=== PATIENT | female | born 1945 | race Caucasian/White ===

== ENCOUNTER 2016-09-02 09:15 | Day surgery (SDC) | payer MEDICARE ==
--- NOTE | 2016-09-02 07:39 | History and Physical Report ---
DATE: 09/01/2016. CHIEF COMPLAINT: This is a patient with a history of intractable radiculitis. HISTORY OF PRESENT ILLNESS: She has a spinal opioid infusion system which is currently infusing hydromorphone. At the recent refill, it was noted that the system was at battery depletion. She is here for pump battery replacement. PAST MEDICAL HISTORY: Cardiovascular disease, chronic obstructive pulmonary disease, gastritis, degenerative arthritis. PAST SURGICAL HISTORY: Hand surgery, elbow surgery, reconstructive surgery of the upper extremity, stimulator implant. MEDICATIONS ON ADMISSION: To be provided. ALLERGIES: Erythromycin and adhesive tape. SOCIAL HISTORY: Noncontributory. FAMILY HISTORY: Hypertension, cancer. REVIEW OF SYSTEMS: The patient seems appropriate and in no acute distress. PHYSICAL EXAMINATION: (From the chart.) General: Height is 5 feet, 6 inches. Weight is 200 pounds. Vital Signs: Unavailable. HEENT: Within normal limits. Lungs: Clear. Heart: Regular rate and rhythm. Abdomen: Nontender. Musculoskeletal: Examination of the musculoskeletal system shows diffuse pain and tenderness throughout the cervical spine and upper extremities, more right than left. Low back pain with a bilateral lower extremity extension. Sensory eubanks are intact. Neurologic: Cranial nerves are intact. Ambulation: The patient is assistive device dependent. IMPRESSION: 1. INTRACTABLE LUMBAR RADICULITIS, ICD-10 CODE M54.16 AND M54.17. 2. IMPLANTED SPINAL INFUSION SYSTEM WITH HYDROMORPHONE WITH BATTERY DEPLETION. PLAN: The pump is in the right posterior superior gluteal margin and has battery depletion. She is here for replacement. The procedure will be considered outpatient. An overnight stay will not be necessary. No parameter changes will be made. The potential risks, side effects, and complications have all been reviewed and discussed. ALFA ARIAS D.O. Date & Time JOB NUMBER: [id number] cc: Jewel Dsouza
[~2016-09-02 09:15] MED LIST: ACETAMINOPHEN 1,000 MG/100 ML BTL IV ONE; CEFAZOLIN 2 Gram 2 GM/50 ML BAG IVPB ONE; FAMOTIDINE 20MG TABLET PO ONE; HYDROMORPHONE HCL IV ONE; HYDROMORPHONE HCL/PF 0.002 MG in 0.9 % SODIUM CHLORIDE 10ML VIA 0.998 ML IVP ONE; MECLIZINE 25 MG TABLET PO ONE; METOCLOPRAMIDE 10 MG TABLET PO ONE; SODIUM CHLORIDE 0.9% IV ONE
[2016-09-02] MEDS ORDERED: MIDAZOLAM HCL 2MG/2ML VIAL IV ONE (14:00)
[2016-09-02] MEDS ORDERED: FENTANYL PF 100MCG/2ML VIAL IV ONE (14:00)
[2016-09-02] MEDS ORDERED: PROPOFOL 10 MG/ML VIAL IV ONE (14:00)
[2016-09-02] MEDS ORDERED: CEFAZOLIN 1G VIAL IM ONE (14:00)
[2016-09-02] MEDS ORDERED: LIDOCAINE 2% MDV (20MG/ML) 20ML VIAL IV ONE (14:00)
--- NOTE | 2016-09-02 16:38 | Operative Note - [place] ---
DATE OF SURGERY: 09/02/16 PREOPERATIVE DIAGNOSES: 1. LUMBAR RADICULITIS, ICD-10 CODE = M54.16 AND M54.17. 2. SPINAL OPIOID INFUSION SYSTEM HYDROMORPHONE. OPERATION: 1. INCISION, SUBCUTANEOUS DISSECTION, AND REMOVAL AND REPLACEMENT OF PROGRAMMABLE PUMP AT RIGHT POSTERIOR GLUTEAL MARGIN. 2. INCISION AND REVISION OF POUCH TO ACCOMMODATE NEW PUMP RIGHT POSTERIOR GLUTEAL MARGIN. 3. ASPIRATION 1 ML OF CATHETER CONTENTS CLEARING CATHETER OF OPIOID AND CSF MIXTURE. 4. DIAGNOSTIC MYELOGRAPHY WITH RADIOLOGIC SUPERVISION AND INTERPRETATION. 5. PLACEMENT OF PUMP INTO POUCH SECURING TO POSTERIOR FASCIA USING NONABSORBABLE SUTURE AND PUMP EYELETS. 6. CLOSURE OF INCISION VICRYL FOR FASCIA, RUNNING SUBCUTICULAR VICRYL FOR SKIN. DERMABOND CLOSURE. 7. PROGRAMMING OF PUMP TO DELIVER BY SIMPLE CONTINUOUS 1.2 MG HYDROMORPHONE PER DAY. SURGEON: ALFA ARIAS D.O. ANESTHESIA: LOCAL SEDATION. ANESTHESIA PROVIDER: RAJESH CORDERO CRNA INDICATION: This patient presents with a history of intractable lumbar radiculitis with a spinal opioid infusion system Hydromorphone managing pain. At the last refill and reprogramming, it was noted battery depletion. She is here for replacement of battery and appropriate diagnostics. PROCEDURE: Intravenous line, vital sign monitoring, IV sedation, prepped and draped sterile technique. Under imaging, the patient was positioned prone. Sterile prep and sterile technique at the right posterior gluteal margin. The incision was marked, infiltrated with local, then incision made, and subcutaneous dissection was conducted to the Dacron sleeve and closing the pump. The Dacron sleeve was then opened and the pump exteriorized. The pump catheter connection was then and a new pump placed onto the field prefilled with Hydromorphone at10 mg per mL concentration. The new pump 20 mL to previous removed pump 40 mL. The 20 mL pump was then interfaced within the indwelling catheter. The pouch was then revised to accommodate the new pump. Antibiotic irrigation. Bovie for hemostasis. The catheter was then revised and resected from indwelling scar to ensure no kinks or bends. Irrigation performed. Bovie for hemostasis. The pump was placed into the pouch and secured to the posterior fascia with a nonabsorbable suture. A 24-gauge Hu needle was then inserted into the access port and 1 mL of catheter contents was aspirated clearing the catheter of opioid and CSF mixture. Contrast was then injected, the resulting myelogram with radiologic supervision and interpretation showed catheter contents appropriately. There were no kinks or bends. No leaks. The catheter tip at T12-L1 was identified with smooth and linear flow of contrast confirming. At that point, the incision was closed Vicryl for fascia, running subcuticular Vicryl for skin. Dermabond closure was placed. She was then programmed to deliver by continuous infusion her previous rate 1.2 mg Hydromorphone per day. cc: Dr. Sally Ferguson JOB NUMBER: [id number] MTDD
== END 2016-09-02 12:30 | disposition home or self-care (01) ==
LOC: SUR 09:15
PROVIDERS: ATTEND Pain Medicine Interventional Pain Medicine
DX: T85.890A Other specified complication of nervous system prosthetic devices, implants and grafts, initial encounter (principal); M54.16 Radiculopathy, lumbar region; M54.17 Radiculopathy, lumbosacral region; I10 Essential (primary) hypertension; J44.9 Chronic obstructive pulmonary disease, unspecified; M79.7 Fibromyalgia
CPT/HCPCS: 62362; 00300; 62368; Q9967; J1170; J3010; J0690